=== PATIENT | female | born 1980 | race Caucasian/White ===

== ENCOUNTER 2019-11-08 10:04 | Emergency (ER) | payer SELFPAY ==
[2019-11-08] MEDS ORDERED: DOXYCYCLINE 100 MG CAP PO ONE (11:04)
[2019-11-08] MEDS ORDERED: AZITHROMYCIN 250 MG TAB ONE (11:04)
[2019-11-08] MEDS ORDERED: LIDOCAINE 1% MPF 2 ML AMPULE ONE (11:05)
[2019-11-08] MEDS ORDERED: CEFTRIAXONE 1000 MG/VIAL ONE (11:05)
[2019-11-08 11:11] LABS: Urine Blood 2+ (NEG); Urine Glucose NEGATIVE (NEG); Urine Protein TRACE (NEG); Urine Specific Gravity 1.025 (1.005-1.030); Urine pH 6.5 (5.0-7.0)
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
[2019-11-08 12:20] VITALS: TEMP 98; O2SAT 99
[2019-11-08 12:21] VITALS: BP 160/105
== END 2019-11-08 12:14 | disposition home or self-care (01) ==
LOC: ER 10:04
DX: R10.2 Pelvic and perineal pain (principal); N39.0 Urinary tract infection, site not specified; T76.21XA Adult sexual abuse, suspected, initial encounter; Z11.3 Encounter for screening for infections with a predominantly sexual mode of transmission; F17.210 Nicotine dependence, cigarettes, uncomplicated
CPT/HCPCS: 81003; 81025; 87086; 87088; 96372; 99283; J2001

== ENCOUNTER 2021-05-19 12:44 | Emergency (ER) | payer SELFPAY ==
[2021-05-19 16:14] LABS: Urine Blood Negative (Negative); Urine Glucose Negative (Negative); Urine Protein Negative (Negative); Urine pH 7.5 (5.0-7.0)
[2021-05-19 16:15] LABS: Absolute Lymphocytes (CBC) 1.8 K/uL (0.7-4.9); Basophils % 0.9 % (0-1.3); Hematocrit 43.3 % (36.0-45.0); Lymphocytes % 21.5 % (15.3-44.8); MPV 7.5 fL (7.6-11.3); RBC Red Blood Cell Count 4.57 M/uL (3.86-4.86)
[2021-05-19 16:20] LABS: Protime INR 0.92
[2021-05-19] MEDS ORDERED: LORazepam 2 MG/ML VIAL ONE (16:42)
[2021-05-19 16:56] LABS: Barbiturates NEGATIVE (NEGATIVE); Benzodiazepines NEGATIVE (NEGATIVE); Cocaine NEGATIVE (NEGATIVE); METHAMPHETAM POSITIVE (NEGATIVE); Methadone NEGATIVE (NEGATIVE); Opiates NEGATIVE (NEGATIVE); Phencyclidine NEGATIVE (NEGATIVE); THC Cannibis NEGATIVE (NEGATIVE)
[2021-05-19] MEDS ORDERED: OLANZapine 10 MG TABLET PO ONE (17:00)
[2021-05-19 17:09] LABS: ALT/SGPT 23 U/L (12-78); AST/SGOT 12 U/L (15-37); Albumin 3.5 g/dL (3.4-5.0); Alkaline Phosphatase 78 U/L (45-117); BUN Blood Urea Nitrogen 9 mg/dL (7-18); Bicarbonate 27 mmol/L (21-32); Bilirubin Direct < 0.1 mg/dL (0-0.2); Bilirubin Total 0.2 mg/dL (0.2-1.0); Glucose Level 111 mg/dL (74-106); Potassium 3.4 mmol/L (3.5-5.1); Protein, Total 7.3 g/dL (6.4-8.2); Sodium Level 142 mmol/L (136-145)
[2021-05-19] MEDS ORDERED: POTASSIUM CL SA 10 MEQ TAB PO ONE (18:30)
--- NOTE | 2021-05-19 19:47 | EDPHYS ---
Physician Documentation [facility] Name: Heaven Shaw Age: 40 yrs Sex: Female : 1980 Arrival Date: 05/19/2021 Time: 12:45 Bed DX1 Private MD: ED Physician Mony Nguyen HPI: 05/19 15:45 This 40 yrs old Female presents to ER via Ambulatory with complaints of Psych jr8 Problem. 15:45 This is a 40-year-old female who presented to the emergency room for auditory and jr8 visual hallucinations. Patient has a history of bipolar disorder with anxiety and depression. Patient stated over the last couple months she has been hearing and seeing which he calls "small people "that are following her. Stated that she is seeing cameras that are watching her and random hands and her pictures. Patient stated that she can no longer handle the anxiety and feels like she is losing her mind.. 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 - Social history:: Smoking status: Patient reports the use of cigarette tobacco products, smokes one pack cigarettes per day. Patient uses street drugs, Methamphetamine (Meth) "a couple of days ago", "i [facility] to get to [facility] but they told me I had to go to [facility] to get a mental evaluation". ROS: 15:45 Eyes: Negative for injury, pain, redness, and discharge, ENT: Negative for injury, jr8 pain, and discharge, Neck: Negative for injury, pain, and swelling, Cardiovascular: Negative for chest pain, palpitations, and edema, Respiratory: Negative for shortness of breath, cough, wheezing, and pleuritic chest pain, Abdomen/GI: Negative for abdominal pain, nausea, vomiting, diarrhea, and constipation, Back: Negative for injury and pain, MS/Extremity: Negative for injury and deformity, Skin: Negative for injury, rash, and discoloration, Neuro: Negative for headache, weakness, numbness, tingling, and seizure. 15:45 Psych: Positive for anxiety, auditory hallucinations, visual hallucinations. Exam: 15:45 Eyes: Pupils equal round and reactive to light, extra-ocular motions intact. Lids and jr8 lashes normal. Conjunctiva and sclera are non-icteric and not injected. Cornea within normal limits. Periorbital areas with no swelling, redness, or edema. ENT: Nares patent. No nasal discharge, no septal abnormalities noted. Tympanic membranes are normal and external auditory canals are clear. Oropharynx with no redness, swelling, or masses, exudates, or evidence of obstruction, uvula midline. Mucous membranes moist. Neck: Trachea midline, no thyromegaly or masses palpated, and no cervical lymphadenopathy. Supple, full range of motion without nuchal rigidity, or vertebral point tenderness. No Meningismus. Cardiovascular: Regular rate and rhythm with a normal S1 and S2. No gallops, murmurs, or rubs. Normal PMI, no JVD. No pulse deficits. Respiratory: Lungs have equal breath sounds bilaterally, clear to auscultation and percussion. No rales, rhonchi or wheezes noted. No increased work of breathing, no retractions or nasal flaring. Abdomen/GI: Soft, non-tender, with normal bowel sounds. No distension or tympany. No guarding or rebound. No evidence of tenderness throughout. Back: No spinal tenderness. No costovertebral tenderness. Full range of motion. Skin: Warm, dry with normal turgor. Normal color with no rashes, no lesions, and no evidence of cellulitis. MS/ Extremity: Pulses equal, no cyanosis. Neurovascular intact. Full, normal range of motion. Neuro: Awake and alert, GCS 15, oriented to person, place, time, and situation. Cranial nerves II-XII grossly intact. Motor strength 5/5 in all extremities. Sensory grossly intact. Cerebellar exam normal. Normal gait. 15:45 Psych: Affect is animated, Oriented to person, place, time, Patient has no thoughts/intents to harm self or others. Judgement / Insight is normal. Memory is normal. Delusions/hallucinations are present and described as See HPI . Vital Signs: 13:08 BP 127 / 102; Pulse 95; Resp 18; Temp 97.8(TE); Pulse Ox 100% on R/A; Weight 70.31 kg tw2 (R); 19:27 BP 127 / 76; Pulse 101; Resp 20; Pulse Ox 97% on R/A; kg MDM: 15:03 Patient medically screened. 8 19:45 Data reviewed: vital signs, nurses notes, lab test result(s), EKG. Data interpreted: jr8 Pulse oximetry: on room air is 97 %. Interpretation: normal. Counseling: I had a detailed discussion with the patient and/or guardian regarding: the historical points, exam findings, and any diagnostic results supporting the discharge/admit diagnosis, lab results. ED course: Discussed with patient that she is medically cleared at this time. Trying to place patient at a psychiatric facility for further work-up.. ED course: Nursing staff notified me just now that patient had eloped for unknown reason. 05/19 15:34 Order name: Acetaminophen; Complete Time: 17:13 [facility] 05/19 15:34 Order name: Basic Metabolic Panel; Complete Time: 17:13 [facility] 05/19 15:34 Order name: CBC with Diff; Complete Time: 16:34 [facility] 05/19 15:34 Order name: ETOH Level; Complete Time: 17:13 05/19 15:34 Order name: Hepatic Function; Complete Time: 17:13 05/19 15:34 Order name: PT-INR; Complete Time: 16:34 [facility] 05/19 15:34 Order name: Ptt, Activated; Complete Time: 16:34 [facility] 05/19 15:34 Order name: Salicylate [facility] 05/19 15:34 Order name: Urine Drug Screen; Complete Time: 17:13 [facility] 05/19 16:14 Order name: Urine Dipstick-Ancillary; Complete Time: 16:15 [facility] 05/19 16:15 Order name: Urine --Ancillary (enter results) bd 05/19 16:15 Order name: Urine --Ancillary [facility] 05/19 15:34 Order name: EKG; Complete Time: 15:34 [facility] 05/19 15:34 Order name: EKG - Nurse/Tech; Complete Time: 16:54 05/19 15:34 Order name: IV Saline Lock; Complete Time: 16:05/19 15:34 Order name: Labs collected and sent; Complete Time: 16:05/19 15:34 Order name: Suicide Screening (Drifting); Complete Time: 16:05/19 15:34 Order name: Urine Dipstick-Ancillary (obtain specimen); Complete Time: 16:05/19 17:07 Order name: Labs - recollect needed: recollect red top; Complete Time: 18:57 bd Administered Medications: 16:22 Drug: Ativan (LORazepam) 1 mg Route: IVP; Site: right forearm; kg 16:54 Follow up: Response: No adverse reaction kg 16:53 Drug: ZyPREXA (OLANZapine) 20 mg Route: PO; kg 18:58 Follow up: Response: No adverse reaction kg 18:06 Drug: Potassium Chloride 40 mEq Route: PO; kg 18:57 Follow up: Response: No adverse reaction kg Disposition: 05/20 07:06 Co-signature as Attending Physician, Mony Nguyen MD I agree with the assessment and sp3 plan of care. Disposition Summary: 05/19/21 19:47 Eloped Disposition: after being seen by provider jr8 Reason: unknown jr8 Condition: Stable jr8 Diagnosis - Schizoaffective disorder, bipolar type jr8 Signatures: Dispatcher [employer] EDMS Nay Nguyen Josh, PA PA jr8 Phyllis Arellano RN RN tw2 Tracy Hassan RN RN kg Mony Nguyen MD MD sp3 Corrections: (The following items were deleted from the chart) 05/19 19:31 17:10 CORONAVIRUS+MR.LAB.BRZ ordered. EDMS EDMS
--- NOTE | 2021-05-19 19:47 | ER ---
Nurse's Notes [facility] Name: Heaven Shaw Age: 40 yrs Sex: Female : 1980 Arrival Date: 05/19/2021 Time: 12:45 Bed DX1 Private MD: Diagnosis: Schizoaffective disorder, bipolar type Presentation: 05/19 13:00 Chief complaint: Patient states: I feel like there are little people fucking with me. I tw2 feel like they are drugging me. I have red dots on my arms I feel like i am loosing my mind. Coronavirus screen: At this time, the client does not indicate any symptoms associated with coronavirus-19. Ebola Screen: Patient denies travel to an Ebola-affected area in the 21 days before illness onset. 13:00 Method Of Arrival: Ambulatory tw2 13:08 Initial Sepsis Screen: Does the patient meet any 2 criteria? No. Patient's initial tw2 sepsis screen is negative. Does the patient have a suspected source of infection? No. Patient's initial sepsis screen is negative. Risk Assessment: Do you want to hurt yourself or someone else? Patient reports desire/thoughts of hurting themselves or someone else. Provider notified. Other: "i feel like i am loosing my mind and if i dont get help i feel like i will kill myself" "I have been thinking about killing myself but i cannot do that for my kids". Onset of symptoms was May 19, 2021. 13:08 Acuity: CAROL 2 tw2 Triage Assessment: 13:07 General: Appears in no apparent distress. Behavior is anxious, crying, fussy, restless. tw2 Pain: Denies pain. 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 - Social history:: Smoking status: Patient reports the use of cigarette tobacco products, smokes one pack cigarettes per day. Patient uses street drugs, Methamphetamine (Meth) "a couple of days ago", "i tried to get to [facility] but they told me I had to go to [facility] to get a mental evaluation". Screenin:08 Abuse screen: Denies threats or abuse. Nutritional screening: No deficits noted. tw2 Tuberculosis screening: No symptoms or risk factors identified. Fall Risk None identified. Assessment: 19:01 Reassessment: Pt was upset with having tourniquet on her arm while having blood drawn kg from IV. Pt became very anxious stating it hurt really bad. Removed tourniquet and the patient stated IV was hurting really bad. Removed pts IV per her request. Then tried to do COVID swab on patient but pt was very uncooperative and got very upset. . 20:09 Reassessment: Pt eloped while nurse was in another patients room. . kg Psych: 18:00 Cost Suicide Severity Screening: In the past month, have you wished you were kg or wished you could go to sleep and not wake up? Patient responds "No." "In the past month, have you actually had any thoughts of killing yourself?" Patient responds "no." "In your lifetime, have you ever done anything, started to do anything, or prepared to do anything to end your life?" Patient responds "no.". Subjective: Patient's mood is irritable, Delusions are denied, Hallucinations are auditory, visual, Having thoughts of Denies SI or HI thoughts. Objective: Patient is cooperative, irritable, restless, Speech is normal, Affect is appropriate. Interventions: Urine collected and sent for urine drug test. Safety Checks: Sitting in chair next to nursing station in eyes view. Patient uses methamphetamines Last use was 3 days ago. Commitment: Patient will be a voluntary commitment. Vital Signs: 13:08 BP 127 / 102; Pulse 95; Resp 18; Temp 97.8(TE); Pulse Ox 100% on R/A; Weight 70.31 kg tw2 (R); 19:27 BP 127 / 76; Pulse 101; Resp 20; Pulse Ox 97% on R/A; kg ED Course: 12:45 Patient arrived in ED. am2 13:07 Arm band placed on. tw2 13:10 Triage completed. tw2 15:02 Dyllan Francis PA is PHCP. jr8 15:02 Mony Nguyen MD is Attending Physician. jr8 15:55 Inserted saline lock: 22 gauge in right forearm, using aseptic technique. kg 16:07 Tracy Hassan, RN is Primary Nurse. kg 16:07 Salicylate Sent. kg 16:07 Ptt, Activated Sent. kg 16:07 PT-INR Sent. kg 16:07 Hepatic Function Sent. kg 16:07 ETOH Level Sent. kg 16:07 CBC with Diff Sent. kg 16:07 Basic Metabolic Panel Sent. kg 16:07 Acetaminophen Sent. kg 16:22 Urine --Ancillary (enter results) Sent. kg 16:22 Urine --Ancillary Sent. kg 18:41 contacted [facility] to have a screener evaluate pt. bd 18:52 faxed chart to [facility]. bd 19:01 Patient has correct armband on for positive identification. kg 19:05 No provider procedures requiring assistance completed. IV discontinued, intact, kg bleeding controlled, Pressure dressing applied. Administered Medications: 16:22 Drug: Ativan (LORazepam) 1 mg Route: IVP; Site: right forearm; kg 16:54 Follow up: Response: No adverse reaction kg 16:53 Drug: ZyPREXA (OLANZapine) 20 mg Route: PO; kg 18:58 Follow up: Response: No adverse reaction kg 18:06 Drug: Potassium Chloride 40 mEq Route: PO; kg 18:57 Follow up: Response: No adverse reaction kg Outcome: 20:10 Patient left the ED. kg Signatures: Nay Nguyen bd Dyllan Francis PA PA jr8 Phyllis Arellano, RN RN tw2 Chasity Guallpaanda am2 Tracy Hassan, RN RN kg Corrections: (The following items were deleted from the chart) 19:31 18:58 CORONAVIRUS+MR.LAB.BRZ drawn and sent. kg EDMS
[2021-05-19 20:51] VITALS: TEMP 97.8
[2021-05-19 20:54] VITALS: BP 127/76; O2SAT 97
== END 2021-05-19 20:10 | disposition left against medical advice (07) ==
LOC: ER 12:44
DX: F25.0 Schizoaffective disorder, bipolar type (principal); I10 Essential (primary) hypertension; F41.8 Other specified anxiety disorders; F17.210 Nicotine dependence, cigarettes, uncomplicated; F15.94 Other stimulant use, unspecified with stimulant-induced mood disorder
CPT/HCPCS: 36415; 80048; 80076; 80307; 80320; 80329; 81003; 81025; 85025; 85610; 85730; 93005; 96374; 99284; U0003

== ENCOUNTER 2021-12-14 22:42 | Emergency (ER) | payer SELFPAY ==
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
[2021-12-15 15:14] VITALS: BP 154/111; TEMP 98.8; O2SAT 99
== END 2021-12-14 23:18 | disposition left against medical advice (07) ==
LOC: ER 22:42
DX: Z53.21 Procedure and treatment not carried out due to patient leaving prior to being seen by health care provider (principal)
CPT/HCPCS: 99281